=== PATIENT | female | born 1945 | race Caucasian/White ===

== ENCOUNTER 2020-06-20 11:59 | Observation (INO) | payer BC, MEDICARE ==
[2020-06-20] MEDS ORDERED: Ondansetron 4 MG/2 ML SDV IVPUSH PRN (12:04)
[2020-06-20] MEDS ORDERED: HYDROmorphone 0.5 MG/0.5 ML Syringe IVPUSH PRN ×2 (12:05→16:13)
--- NOTE | 2020-06-20 12:09 | EDM.PDOC ---
ED HPI GENERAL MEDICAL PROBLEM - General Chief Complaint: Lower Extremity Injury/Pain Stated Complaint: MEDICAL VIA NORHT Time Seen by Provider: 06/20/20 12:05 Source of Information: Reports: Patient, EMS History Limitations: Reports: No Limitations - History of Present Illness INITIAL COMMENTS - FREE TEXT/NARRATIVE: Caleb is a 75 year old female, presents to the ED via EMS after she was playing shuffle board, stepped on puck and essentially did the splits landing on her right buttock region. Patient unable to ambulate on scene due to pain. Patient arrives here with pain controlled after IV fentanyl enroute. She denies any other injuries, she did not strike her head. She currently has knee supported on pillow. Patient reports this is helpful as well. Patient is here on vacation. Onset: Today, Sudden Right Buttock Pain Score (Numeric/FACES): 8 - Related Data Allergies Allergy/AdvReac Type Severity Reaction Status Date / Time Penicillins Allergy Other Verified 06/20/20 12:03 Sulfa (Sulfonamide Allergy Other Verified 06/20/20 12:03 Antibiotics) Home Meds: Home Meds Timolol Maleate/Latanoprost/Pf [Timolol 0.5%-Latanopros 0.005%] 1 drop EYEBOTH DAILY 06/20/20 [History] Travoprost [Travatan Z 0.004% Ophth Soln] 1 drop EYEBOTH DAILY 06/20/20 [History] Review of Systems - Review of Systems Review Of Systems: Comprehensive ROS is negative, except as noted in HPI. ED EXAM, GENERAL - Physical Exam Exam: See Below Exam Limited By: No Limitations General Appearance: Alert, WD/WN, Mild Distress Nose: Normal Inspection Throat/Mouth: Normal Inspection Head: Atraumatic Neck: Supple Respiratory/Chest: No Respiratory Distress, Lungs Clear, Chest Non-Tender Cardiovascular: Normal Peripheral Pulses, Regular Rate, Rhythm Peripheral Pulses: 2+: Posterior Tibial (L), Posterior Tibial (R) GI/Abdominal: Normal Bowel Sounds, Soft, Non-Tender Back Exam: Normal Inspection Extremities: Other (Right buttock pain, tender to palpation, mild pain with pelvic rock, distal pulses, cap refill itnact) Neurological: Alert, Oriented, CN II-XII Intact Psychiatric: Normal Affect, Normal Mood Skin Exam: Warm, Dry, Intact Lymphatic: No Adenopathy Course - Vital Signs Text/Narrative:: Caleb is a 75 year old female who presents to the ED via EMS with c/o right hip/buttock pain after falling. Please refer to HPI and focused exam. Patient denies any other injuries, arrives with IV in place. CT of pelvis obtained, no fracture but concern right proximal bicep hematoma vs. tear. Patient notified, given oxycodone for pain control. Attempted to ambulate twice with walker and nursing staff and patient is in too much pain to ambulate. Patient will be admitted overnight for pain control. PT/OT to help with disposition planning and pain control. Patient and agreeable to plan of care, patient graciously accepted by Dr. Patiño, hospitalist. Patient admitted in stable condition. Last Recorded V/S: Last Vital Signs Temp 35.4 C L 06/20/20 12:07 Pulse 58 L 06/20/20 12:07 Resp 16 06/20/20 12:07 BP 109/35 L 06/20/20 12:07 Pulse Ox 99 06/20/20 12:07 - Orders/Labs/Meds Orders: Active Orders 24 hr Category Date Time Status HYDROmorphone [Dilaudid] Med 06/20/20 12:05 Active 0.5 mg IVPUSH Q1H PRN Ondansetron [Zofran] Med 06/20/20 12:04 Active 4 mg IVPUSH ONETIME PRN Medication Orders Hydromorphone HCl (Dilaudid) 0.5 mg IVPUSH Q1H PRN PRN Reason: Pain Last Admin: 06/20/20 12:13 Dose: 0.5 mg Documented by: JORDANA Ondansetron HCl (Zofran) 4 mg IVPUSH ONETIME PRN PRN Reason: Nausea/Vomiting Last Admin: 06/20/20 12:12 Dose: 4 mg Documented by: JORDANA Meds: Medications Generic Name Dose Route Start Last Admin Trade Name Freq PRN Reason Stop Dose Admin Hydromorphone HCl 0.5 mg 06/20/20 12:05 06/20/20 12:13 Dilaudid IVPUSH 0.5 mg Q1H PRN Administration Pain Ondansetron HCl 4 mg 06/20/20 12:04 06/20/20 12:12 Zofran IVPUSH 4 mg ONETIME PRN Administration Nausea/Vomiting Discontinued Medications Generic Name Dose Route Start Last Admin Trade Name Arun PRN Reason Stop Dose Admin Oxycodone/Acetaminophen 2 tab 06/20/20 13:23 06/20/20 13:28 Percocet 325-5 Mg PO 06/20/20 13:24 2 tab ONETIME STA Administration Departure - Departure Time of Disposition: 15:30 Disposition: Admitted As Inpatient 68 Condition: Fair Clinical Impression: Hematoma, Tearing of muscle - Discharge Information Referrals: PCP,None [Primary Care Provider] - Forms: ED Department Discharge Sepsis Event Note (ED) - Focused Exam Vital Signs: Vital Signs Temp Pulse Resp BP Pulse Ox 06/20/20 12:07 35.4 C L 58 L 16 109/35 L 99 06/20/20 12:06 35.4 C L 58 L 16 109/35 L 99 - My Orders Last 24 Hours: My Active Orders 06/20/20 12:04 Ondansetron [Zofran] 4 mg IVPUSH ONETIME PRN 06/20/20 12:05 HYDROmorphone [Dilaudid] 0.5 mg IVPUSH Q1H PRN - Assessment/Plan Last 24 Hours: My Active Orders 06/20/20 12:04 Ondansetron [Zofran] 4 mg IVPUSH ONETIME PRN 06/20/20 12:05 HYDROmorphone [Dilaudid] 0.5 mg IVPUSH Q1H PRN
[2020-06-20] MEDS ORDERED: Acetaminophen/oxyCODONE 325-5 MG Tab PO STA (13:23)
--- NOTE | 2020-06-20 13:51 | CT ---
Pelvis wo Cont CLINICAL HISTORY: Right buttock pain, fall COMPARISON: None TECHNIQUE: Multiple contiguous axial sections were obtained from the level of the iliac crests down to the pubic symphysis without IV contrast. Oral contrast was not administered. From these images 3D reconstructions were obtained and reviewed on a dedicated and independent workstation. Auto dosage reduction and iterative reconstruction techniques employed. FINDINGS: No fractures identified in the sacrum pelvis or proximal femurs. There is some swelling and enlargement of the right biceps muscle. Whether this is the medial or lateral head is not determined due to some blurring of the fascial planes. This may represent hematoma alone. Muscle tear is not excluded. Soft tissues are poorly resolved. IMPRESSION: No fracture Moderate swelling of the right proximal biceps which may represent intramuscular hematoma. Whether this is in the medial and lateral portion cannot be discerned. Muscle tear is not excluded
--- NOTE | 2020-06-20 15:16 | PCM.HP.2 ---
H&P History of Present Illness - General Date of Service: 06/20/20 Admit Problem/Dx: Admission Diagnosis/Problem Admission Diagnosis/Problem Hematoma - History of Present Illness Initial Comments - Free Text/Narative: Ms. Fowler is a 75-year-old woman who was admitted to observation status through the emergency department with severe pain in her right thigh secondary to a muscle tear and resulting hematoma. She was feeling well and in her usual state of good health when she fell this morning playing [employer] board. She had stepped on 1 of the disks and it slid out from under her. She immediately noted severe pain in her right thigh. She was unable to ambulate so she was brought into the emergency department for further evaluation. The scan of the pelvis showed no evidence of fractures but does document a probable muscle tear/injury on the right with associated hematoma. Because of the severe pain she is unable to bear weight or ambulate. Right Buttock Pain Score (Numeric/FACES): 8 - Related Data Allergies/Adverse Reactions: Allergies Allergy/AdvReac Type Severity Reaction Status Date / Time Penicillins Allergy Other Verified 06/20/20 12:03 Sulfa (Sulfonamide Allergy Other Verified 06/20/20 12:03 Antibiotics) Home Medications: Home Meds Timolol Maleate/Latanoprost/Pf [Timolol 0.5%-Latanopros 0.005%] 1 drop EYEBOTH DAILY 06/20/20 [History] Travoprost [Travatan Z 0.004% Ophth Soln] 1 drop EYEBOTH DAILY 06/20/20 [History] Past Medical History HEENT History: Reports: Glaucoma Cardiovascular History: Reports: High Cholesterol, Other (See Below) Other Cardiovascular History: suki Endocrine/Metabolic History: Reports: Obesity/BMI 30+ - Past Surgical History HEENT Surgical History: Reports: None Cardiovascular Surgical History: Reports: None Endocrine Surgical History: Reports: None Dermatological Surgical History: Reports: None Social & Family History - Tobacco Use Smoking Status *Q: Never Smoker Second Hand Smoke Exposure: No - Caffeine Use Caffeine Use: Reports: Tea - Recreational Drug Use Recreational Drug Use: No H&P Review of Systems - Review of Systems: Review Of Systems: See Below General: Reports: No Symptoms HEENT: Reports: No Symptoms Pulmonary: Reports: No Symptoms Cardiovascular: Reports: No Symptoms Gastrointestinal: Reports: No Symptoms Genitourinary: Reports: No Symptoms Musculoskeletal: Reports: Other (Severe pain right thigh and lower buttock) Skin: Reports: No Symptoms Psychiatric: Reports: No Symptoms Neurological: Reports: No Symptoms Hematologic/Lymphatic: Reports: No Symptoms Immunologic: Reports: No Symptoms Exam - Exam Exam: See Below - Vital Signs Vital Signs: Last Vital Signs Temp 95.7 F L 06/20/20 12:07 Pulse 58 L 06/20/20 12:07 Resp 16 06/20/20 12:07 BP 109/35 L 06/20/20 12:07 Pulse Ox 99 06/20/20 12:07 Weight: 170 lb - Exam Quality Assessment: DVT Prophylaxis General: Alert, Oriented, Cooperative, Moderate Distress HEENT: Conjunctiva Clear, Hearing Intact, Mucosa Moist & Tetherow, Normal Nasal Septum, Posterior Pharynx Clear, Pupils Equal Neck: Supple, Trachea Midline, +2 Carotid Pulse wo Bruit Lungs: Clear to Auscultation, Normal Respiratory Effort Cardiovascular: Regular Rate, Regular Rhythm, Normal S1, Normal S2. No: Systo lic Murmur, Diastolic Murmur GI/Abdominal Exam: Soft, Non-Tender, No Organomegaly, No Distention Back Exam: Normal Inspection, Full Range of Motion Extremities: Other (Tenderness right thigh) Skin: Warm, Dry, Intact Neurological: Cranial Nerves Intact, Strength Equal Bilateral, Normal Speech, Normal Tone, Sensation Intact. No: Focal Deficit Neuro Extensive - Mental Status: Alert, Oriented x3, Normal Mood/Affect, Normal Cognition, Memory Intact - Patient Data Result Diagrams: 06/20/20 15:19 Sepsis Event Note - Evaluation Sepsis Screening Result: No Definite Risk - Focused Exam Vital Signs: Vital Signs Temp Pulse Resp BP Pulse Ox 06/20/20 12:07 95.7 F L 58 L 16 109/35 L 99 06/20/20 12:06 95.7 F L 58 L 16 109/35 L 99 Date Exam was Performed: 06/20/20 Time Exam was Performed: 15:36 *Q Meaningful Use (ADM) - VTE *Q VTE Pharmacological Contraindications *Q: Active Hemorrhage - VTE Risk Assess *Q Each Risk Factor Represents 1 Point: Obesity ( BMI > 25 kg/m2) Total Score 1 Point Risk Factors: 1 Each Risk Factor Represents 2 Points: Age 60 - 74 Years Total Score 2 Point Risk Factors: 2 Each Risk Factor Represents 3 Points: None Total Score 3 Point Risk Factors: 0 Each Risk Factor Represents 5 Points: None Total Score 5 Point Risk Factors: 0 Venous Thromboembolism Risk Factor Score *Q: 3 Problem List Initiated/Reviewed/Updated: Yes Orders Last 24hrs: Active Orders 24 hr Category Date Time Status Patient Status Manage Transfer [TRANSFER] Routine ADT 06/20/20 15:10 Ordered BASIC METABOLIC PANEL,BMP [CHEM] Stat Lab 06/20/20 15:10 Ordered CBC WITH AUTO DIFF [HEME] Stat Lab 06/20/20 15:10 Ordered HYDROmorphone [Dilaudid] Med 06/20/20 12:05 Active 0.5 mg IVPUSH Q1H PRN Ondansetron [Zofran] Med 06/20/20 12:04 Active 4 mg IVPUSH ONETIME PRN Resuscitation Status Routine Resus Stat 06/20/20 15:11 Ordered Medication Orders Hydromorphone HCl (Dilaudid) 0.5 mg IVPUSH Q1H PRN PRN Reason: Pain Last Admin: 06/20/20 12:13 Dose: 0.5 mg Documented by: JORDANA Ondansetron HCl (Zofran) 4 mg IVPUSH ONETIME PRN PRN Reason: Nausea/Vomiting Last Admin: 06/20/20 12:12 Dose: 4 mg Documented by: JORDANA Assessment/Plan Comment:: ASSESSMENT AND PLAN MUSCULAR INJURY/HEMATOMA RIGHT THIGH-experienced as a result of a fall earlier today. No evidence of fracture noted on CT scan. There is evidence of muscular injury and probable hematoma. -Pain medication as needed -Physical therapy consult in a.m. -May require short-term long term placement MAINTENANCE ISSUES -DVT prophylaxis; SCUDs, not a candidate for anticoagulation because of hematoma -GI prophylaxis; not indicated -Miller catheter; not indicated -Nutrition; regular diet -Nicotinic dependence; not required CODE STATUS-FULL CODE ADMISSION STATUS-this patient will be admitted to observation status, expect no more than a one night hospital stay for evaluation and management of problems as outlined above. DISPOSITION-anticipate discharge to home after the hospital stay. PRIMARY CARE PROVIDER-patient is from the [facility] and receives health care there - Mortality Measure Prognosis:: Good
[2020-06-20] MEDS ORDERED: oxyCODONE 5 MG Tab PO PRN (16:13)
[2020-06-20] MEDS ORDERED: Polyethylene Glycol 3350 Powder 17 GM Packet PO PRN (16:13)
[2020-06-20] MEDS ORDERED: Ondansetron 4 MG/2 ML SDV IV PRN (16:13)
[2020-06-20] MEDS ORDERED: Sodium Chloride 0.9% 10 ML Syringe FLUSH PRN (16:13)
[2020-06-20] MEDS: Sodium Chloride 0.9% 1,000 ML IV SCH (16:40)
[2020-06-21] MEDS: Sodium Chloride 0.9% 1,000 ML IV SCH ×2 (00:59→09:16)
[2020-06-21] MEDS: Acetaminophen 325 MG Tab PO PRN ×4 (06:22→21:41)
[2020-06-21] MEDS ORDERED: Non-Formulary Medication 1 Each (Travoprost [Travatan Z 0.004% Ophth Soln] 1 DROP) EYEBOTH SCH (09:00)
--- NOTE | 2020-06-21 11:31 | PCM.PN ---
- General Info Date of Service: 06/21/20 Subjective Update: Ms. Fowler is improved from admission, able to ambulate short distances with assistance and use of pain medication. Still somewhat unsteady on her feet. Functional Status: Reports: Tolerating Diet, Ambulating, Urinating - Review of Systems General: Reports: Weakness, Fatigue. Denies: Fever, Chills Pulmonary: Reports: No Symptoms Cardiovascular: Reports: No Symptoms Gastrointestinal: Reports: No Symptoms Musculoskeletal: Reports: Other (Right thigh and buttock pain) - Patient Data Vitals - Most Recent: Last Vital Signs Temp 98.1 F 06/21/20 10:50 Pulse 69 06/21/20 10:50 Resp 18 06/21/20 10:50 BP 156/63 H 06/21/20 10:50 Pulse Ox 97 06/21/20 10:50 Weight - Most Recent: 188 lb 3.2 oz I&O - Last 24 Hours: Intake & Output 06/20/20 06/21/20 06/21/20 22:59 06:59 14:59 Intake Total 480 Output Total 350 100 500 Balance -350 -100 -20 Lab Results Last 24 Hours: Laboratory Results - last 24 hr 06/20/20 06/20/20 06/21/20 Range/Units 15:19 15:19 05:20 WBC 11.8 H (4.5-11.0) K/uL RBC 3.77 (3.30-5.50) M/uL Hgb 11.7 L 10.1 L (12.0-15.0) g/dL Hct 36.0 (36.0-48.0) % MCV 96 (80-98) fL MCH 31 (27-31) pg MCHC 33 (32-36) % Plt Count 196 (150-400) K/uL Neut % (Auto) 88 H (36-66) % Lymph % (Auto) 8 L (24-44) % Dare % (Auto) 4 (2-6) % Eos % (Auto) 0 L (2-4) % Baso % (Auto) 0 (0-1) % Sodium 140 (140-148) mmol/L Potassium 4.5 (3.6-5.2) mmol/L Chloride 104 (100-108) mmol/L Carbon Dioxide 28 (21-32) mmol/L Anion Gap 8.1 (5.0-14.0) mmol/L BUN 24 H (7-18) mg/dL Creatinine 1.2 H (0.6-1.0) mg/dL Est Cr Clr Drug Dosing 31.51 mL/min Estimated GFR (MDRD) 44 L (>60) Glucose 135 H (74-106) mg/dL Calcium 8.4 L (8.5-10.1) mg/dL Med Orders - Current: Current Medications Acetaminophen (Tylenol) 650 mg PO Q4H PRN PRN Reason: Pain (Mild 1-3)/fever Last Admin: 06/21/20 10:47 Dose: 650 mg Documented by: Hydromorphone HCl (Dilaudid) 0.5 mg IVPUSH Q2H PRN PRN Reason: Pain (severe 7-10) Last Admin: 06/20/20 16:51 Dose: 0.5 mg Documented by: Non-Formulary Medication (Timolol Maleate/Latanoprost/Pf [Timolol 0.5%- Latanopros 0.005%]) 1 drop EYEBOTH DAILY [facility] Non-Formulary Medication (Travoprost [Travatan Z 0.004% Ophth Soln]) 1 drop EYEBOTH DAILY [facility] Ondansetron HCl (Zofran) 4 mg IV Q4H PRN PRN Reason: Nausea/Vomiting Last Admin: 06/20/20 17:39 Dose: 4 mg Documented by: Oxycodone HCl (Oxycodone) 5 mg PO Q4H PRN PRN Reason: Pain (moderate 4-6) Polyethylene Glycol (Miralax) 17 gm PO DAILY PRN PRN Reason: Constipation Sodium Chloride (Saline Flush) 10 ml FLUSH ASDIRECTED PRN PRN Reason: Keep Vein Open Discontinued Medications Hydromorphone HCl (Dilaudid) 0.5 mg IVPUSH Q1H PRN PRN Reason: Pain Last Admin: 06/20/20 12:13 Dose: 0.5 mg Documented by: Sodium Chloride (Normal Saline) 1,000 mls @ 125 mls/hr IV ASDIRECTED VERÓNICA Last Admin: 06/21/20 09:16 Dose: 125 mls/hr Documented by: Ondansetron HCl (Zofran) 4 mg IVPUSH ONETIME PRN PRN Reason: Nausea/Vomiting Last Admin: 06/20/20 12:12 Dose: 4 mg Documented by: Oxycodone/Acetaminophen (Percocet 325-5 Mg) 2 tab PO ONETIME STA Stop: 06/20/20 13:24 Last Admin: 06/20/20 13:28 Dose: 2 tab Documented by: - Exam Quality Assessment: DVT Prophylaxis General: Alert, Oriented, Cooperative, Moderate Distress Lungs: Clear to Auscultation, Normal Respiratory Effort Cardiovascular: Regular Rate, Regular Rhythm, No Murmurs GI/Abdominal Exam: Soft, Non-Tender, No Organomegaly, No Distention Extremities: Leg Pain Sepsis Event Note - Evaluation Sepsis Screening Result: No Definite Risk - Focused Exam Vital Signs: Vital Signs Temp Temp Pulse Resp BP Pulse Ox 06/21/20 10:50 98.1 F 69 18 156/63 H 97 06/21/20 07:01 96.8 F L 74 15 149/54 H 96 06/21/20 03:33 97.7 F 74 16 144/59 H 96 Date Exam was Performed: 06/21/20 Time Exam was Performed: 11:28 - Problem List Review Problem List Initiated/Reviewed/Updated: Yes - My Orders Last 24 Hours: My Active Orders 06/20/20 Lunch Regular Diet [DIET] 06/20/20 15:11 Resuscitation Status Routine 06/20/20 16:13 Acetaminophen [Tylenol] 650 mg PO Q4H PRN HYDROmorphone [Dilaudid] 0.5 mg IVPUSH Q2H PRN Ondansetron [Zofran] 4 mg IV Q4H PRN Sodium Chloride 0.9% [Saline Flush] 10 ml FLUSH ASDIRECTED PRN oxyCODONE 5 mg PO Q4H PRN polyethylene glycoL 3350 [MiraLAX] 17 gm PO DAILY PRN 06/20/20 16:13 Patient Status [ADT] Routine Ambulate [RC] QID Height and Weight [RC] 0500 Intake and Output [RC] QSHIFT Notify Provider Vital Signs [RC] ASDIRECTED Oxygen Therapy [RC] PRN Peripheral IV Care [RC] Q12H Up With Assistance [RC] ASDIRECTED Up to Chair [RC] QID VTE/DVT Education [RC] Per Unit Routine Vital Signs [RC] Q4H PT Evaluation and Treatment [CONS] Routine Peripheral IV Insertion Adult [OM.PC] Routine Sequential Compression Device [OM.PC] Per Unit Routine VTE Pharmacological Contraindications [AST] Per Unit Routine 06/21/20 09:00 Timolol Maleate/Latanoprost/Pf [Timolol 0.5%-Latanopros 0.005%] 1 drop EYEBOTH DAILY Travoprost [Travatan Z 0.004% Ophth Soln] 1 drop EYEBOTH DAILY 06/21/20 11:27 Convert IV to Saline Lock [OM.PC] Routine - Plan Plan:: ASSESSMENT AND PLAN MUSCULAR INJURY/HEMATOMA RIGHT THIGH-experienced as a result of a fall. No evidence of fracture noted on CT scan. There is evidence of muscular injury and probable hematoma. Improved from admission, able to ambulate short distances with assistance -Pain medication as needed -Physical therapy follow-up MAINTENANCE ISSUES -DVT prophylaxis; SCUDs, not a candidate for anticoagulation because of hematoma -GI prophylaxis; not indicated -Miller catheter; not indicated -Nutrition; regular diet -Nicotinic dependence; not required CODE STATUS-FULL CODE ADMISSION STATUS-this patient will be admitted to observation status, expect no more than a one night hospital stay for evaluation and management of problems as outlined above. DISPOSITION-anticipate discharge to home tomorrow PRIMARY CARE PROVIDER-patient is from the [facility] and receives health care there
[2020-06-22] MEDS: Acetaminophen 325 MG Tab PO PRN (07:51)
--- NOTE | 2020-06-22 09:37 | PCM.DCSUM1 ---
Discharge Summary - Hospital Course Brief History: Ms. Fowler is a 75-year-old woman who was admitted through the emergency department with severe pain in the right hip and buttock, secondary to muscle tear and hematoma. - Discharge Data Discharge Date: 06/22/20 Discharge Disposition: Home, Self-Care 01 Condition: Fair - Referral to Home Health Primary Care Physician: PCP None - Discharge Diagnosis/Problem(s) (1) Hematoma SNOMED Code(s): 823934231 ICD Code: T14.8XXA - OTHER INJURY OF UNSPECIFIED BODY REGION, INITIAL ENCOUNTER Status: Acute Current Visit: Yes (2) Tearing of muscle SNOMED Code(s): 002854095 ICD Code: T14.8XXA - OTHER INJURY OF UNSPECIFIED BODY REGION, INITIAL ENCOUNTER Status: Acute Current Visit: Yes - Patient Summary/Data Consults: Consultations 06/20/20 16:13 PT Evaluation and Treatment [CONS] Routine Please Evaluate and Treat. PT Reason for Consult: Muscle tear, hematoma, right thigh This query below is only for informational purposes and is not editable. Hospital Course: Ms. Fowler is a 75-year-old woman who was admitted to observation status through the emergency department with severe pain in her right thigh secondary to a muscle tear and resulting hematoma. She was feeling well and in her usual state of good health when she fell playing shuffle board. She had stepped on 1 of the disks and it slid out from under her. She immediately noted severe pain in her right thigh. She was unable to ambulate so she was brought into the emergency department for further evaluation. The scan of the pelvis showed no evidence of fractures but does document a probable muscle tear/injury on the right with associated hematoma. Because of the severe pain she is unable to bear weight or ambulate. She was given IV fluids for hydration as well as pain medication as needed. On the morning after admission she was seen and evaluated by physical therapy and did receive exercise and home regimen. By the time of discharge she was walking independently with use of a walker. Pain was well controlled with use of Tylenol. Activity will be as tolerated and she will resume her usual diet. Follow-up appointment will be scheduled with her primary care provider within 1 week. - Patient Instructions Diet: Usual Diet as Tolerated Activity: As Tolerated Other/Special Instructions: Please schedule follow-up appointment with primary care provider within 1 week. - Discharge Plan *PRESCRIPTION DRUG MONITORING PROGRAM REVIEWED*: Not Applicable *COPY OF PRESCRIPTION DRUG MONITORING REPORT IN PATIENT CALEB: Not Applicable Home Medications: Home Meds Timolol Maleate/Latanoprost/Pf [Timolol 0.5%-Latanopros 0.005%] 1 drop EYEBOTH DAILY 06/20/20 [History] Travoprost [Travatan Z 0.004% Ophth Soln] 1 drop EYEBOTH DAILY 06/20/20 [History] Acetaminophen [Tylenol] 650 mg PO Q4H PRN tablet 06/22/20 [Rx] - Discharge Summary/Plan Comment DC Time >30 min.: No - Patient Data Vitals - Most Recent: Last Vital Signs Temp 97.6 F 06/22/20 07:00 Pulse 64 06/22/20 07:00 Resp 18 06/22/20 07:00 BP 150/68 H 06/22/20 07:00 Pulse Ox 97 06/22/20 07:00 Weight - Most Recent: 189 lb I&O - Last 24 hours: Intake & Output 06/21/20 06/22/20 06/22/20 22:59 06:59 14:59 Intake Total 240 120 Output Total 2 200 Balance 240 -2 -80 Med Orders - Current: Current Medications Acetaminophen (Tylenol) 650 mg PO Q4H PRN PRN Reason: Pain (Mild 1-3)/fever Last Admin: 06/22/20 07:51 Dose: 650 mg Documented by: Hydromorphone HCl (Dilaudid) 0.5 mg IVPUSH Q2H PRN PRN Reason: Pain (severe 7-10) Last Admin: 06/20/20 16:51 Dose: 0.5 mg Documented by: Non-Formulary Medication (Timolol Maleate/Latanoprost/Pf [Timolol 0.5%- Latanopros 0.005%]) 1 drop EYEBOTH DAILY [facility] Non-Formulary Medication (Travoprost [Travatan Z 0.004% Ophth Soln]) 1 drop EYEBOTH DAILY [facility] Ondansetron HCl (Zofran) 4 mg IV Q4H PRN PRN Reason: Nausea/Vomiting Last Admin: 06/20/20 17:39 Dose: 4 mg Documented by: Oxycodone HCl (Oxycodone) 5 mg PO Q4H PRN PRN Reason: Pain (moderate 4-6) Polyethylene Glycol (Miralax) 17 gm PO DAILY PRN PRN Reason: Constipation Sodium Chloride (Saline Flush) 10 ml FLUSH ASDIRECTED PRN PRN Reason: Keep Vein Open Discontinued Medications Hydromorphone HCl (Dilaudid) 0.5 mg IVPUSH Q1H PRN PRN Reason: Pain Last Admin: 06/20/20 12:13 Dose: 0.5 mg Documented by: Sodium Chloride (Normal Saline) 1,000 mls @ 125 mls/hr IV ASDIRECTED VERÓNICA Last Admin: 06/21/20 09:16 Dose: 125 mls/hr Documented by: Ondansetron HCl (Zofran) 4 mg IVPUSH ONETIME PRN PRN Reason: Nausea/Vomiting Last Admin: 06/20/20 12:12 Dose: 4 mg Documented by: Oxycodone/Acetaminophen (Percocet 325-5 Mg) 2 tab PO ONETIME STA Stop: 06/20/20 13:24 Last Admin: 06/20/20 13:28 Dose: 2 tab Documented by: - Exam General: Reports: Alert, Oriented, Cooperative, Moderate Distress Lungs: Reports: Clear to Auscultation, Normal Respiratory Effort Cardiovascular: Reports: Regular Rate, Regular Rhythm, No Murmurs GI/Abdominal Exam: Soft, Non-Tender, No Organomegaly, No Distention Extremities: Other (Tenderness right lower buttock and thigh) *Q Meaningful Use (DIS) - VTE *Q VTE Pharmacological Contraindications *Q: Active Hemorrhage
== END 2020-06-22 11:20 | disposition home or self-care (01) ==
LOC: EDBD 11:59 → JP.ED 11:59 → JP.MS 15:10
PROVIDERS: ADMIT Hospitalist; ATTEND Hospitalist
DX: S76.911A Strain of unspecified muscles, fascia and tendons at thigh level, right thigh, initial encounter (principal); E78.00 Pure hypercholesterolemia, unspecified; E66.9 Obesity, unspecified; Z88.0 Allergy status to penicillin; Z88.2 Allergy status to sulfonamides; Z68.32 Body mass index [BMI] 32.0-32.9, adult; W20.8XXA Other cause of strike by thrown, projected or falling object, initial encounter; Y93.89 Activity, other specified
CPT/HCPCS: 36415; 72192; 80048; 85018; 85025; 96361; 96374; 96375; 96376; 97110; 97161; 99285; A9270; G0378; J1170; J2405; J7030; 99284